=== PATIENT | male | born 1940 | race Caucasian/White ===

== ENCOUNTER 2017-06-02 19:19 | Emergency (ER) | payer OTHER ==
[~2017-06-02] VITALS: Ht 180.3 cm; Wt 82.6 kg
[2017-06-02 19:32] VITALS: BP_SYST 159
--- NOTE | 2017-06-02 19:35 | NUR ---
Pt ambulatory to waiting room, waiting to be seen
[2017-06-02 20:31] LABS: BASOPHILS % (AUTO) 0.4 % (0.0-2.0); EOSINOPHILS # (AUTO) 0.2 K/uL (0.0-0.4); EOSINOPHILS % (AUTO) 1.7 % (0.0-4.0); HEMATOCRIT 51.1 % (36-54); HEMOGLOBIN 16.7 g/dL (14.0-18.0); LYMPHOCYTES # (AUTO) 1.7 K/uL (1.0-5.5); LYMPHOCYTES % (AUTO) 16.8 % (20.5-51.5); MEAN CORPUSCULAR HEMOGLOBIN 31 pg (27-31); MEAN CORPUSCULAR HGB CONC 33 % (32-36); MEAN CORPUSCULAR VOLUME 96 fL (79.0-98.0); MONOCYTES % (AUTO) 9.4 % (1.7-9.3); NEUTROPHILS # (AUTO) 7.2 K/uL (1.8-7.7); NEUTROPHILS % (AUTO) 71.7 % (40.0-70.0); PLATELET COUNT (AUTO) 307 K/uL (130-430); RED BLOOD CELL COUNT(AUTO) 5.34 MIL/uL (4.2-6.2); RED CELL DISTRIBUTION WIDTH 12.6 % (9.0-15.0); WHITE BLOOD COUNT (AUTO) 10.1 K/uL (4.8-10.8)
[2017-06-02 20:33] LABS: ANION GAP 5 (5-15); CALCIUM 9.1 mg/dL (8.4-11.0); CHLORIDE 103 mmol/L (98-107); CREATININE 1.21 mg/dL (0.55-1.30); GLUCOSE 107 mg/dL (70-99); POTASSIUM 4.1 mmol/L (3.5-5.1); SODIUM SERUM 140 mmol/L (136-145); UREA NITROGEN, BLOOD 16 mg/dL (8-21)
[2017-06-02 20:37] LABS: INR 1.1 (0.80-1.20); PROTHROMBIN TIME 11.6 SECS (9.5-12.5)
[2017-06-02 20:44] LABS: ALANINE AMINOTRANSFERASE 18 U/L (12-78); ALBUMIN 3.6 g/dL (3.4-4.8); ASPARTATE AMINOTRANSFERASE 20 U/L (10-37); TOTAL BILIRUBIN 0.3 mg/dL (0.0-1.0)
--- NOTE | 2017-06-02 21:58 | NUR ---
Patient to ER bed 6 to gown for evaluation. Side rails up. Report given to DAWOOD Garcia.
[2017-06-02] MEDS ORDERED: ASPIRIN 81 MG TAB.CHEW PO ONE (22:00)
--- NOTE | 2017-06-02 22:01 | NUR ---
ER MD Trevizo at bedside examining patient.
--- NOTE | 2017-06-02 22:10 | NUR ---
Patient AOx4, ambulatory, presents to ER with complaint of chest pain 03/02 since 1400. O2 sat 97% RA. Denies fever/chills. Denies episodes of N/V. No acute distress noted at this time.
[2017-06-02] MEDS ORDERED: NITROGLYCERIN 1 INCH (GM) OINT. TP ONE (22:15)
[2017-06-02] MEDS ORDERED: MORPHINE 2 MG/ML INJ. SYRINGE IVP ONE (22:15)
[2017-06-02] MEDS ORDERED: NACL 0.9% 1,000 ML IV ONE (22:30)
--- NOTE | 2017-06-02 23:15 | NUR ---
# 20 gauge angiocath placed to LFA. Use of asceptic technique. Opsite placed over site. Blood return noted. Blood for lab drawn from site. Flushed with 10 cc of normal saline. No evidence of infiltration noted. Patient tolerated well.
[2017-06-02] MEDS ORDERED: PIPERACILLIN/TAZO 3.375 GM in NS 50 ML IV ONE (23:45)
[2017-06-02] MEDS ORDERED: ASPIRIN 81 MG TAB.CHEW ONE (23:47)
[2017-06-03] MEDS ORDERED: AMOXICILLIN 500 MG CAPSULE PO ONE
--- NOTE | 2017-06-03 | NUR ---
No adverse reactions noted after medication administration. Will continue to monitor.
[2017-06-03 00:20] VITALS: BP_SYST 142
--- NOTE | 2017-06-03 00:20 | NUR ---
Patient given written and verbal discharge instructions and verbalizes understanding. ER MD discussed with patient the results and treatment provided. Patient in stable condition. ID arm band removed. IV catheter removed intact and dressing applied, no active bleeding. Rx of Motrin and Amoxicillin given. Patient educated on pain management and to follow up with PMD. Pain Scale 2/10 tolerable to patient. Opportunity for questions provided and answered.
== END 2017-06-03 00:20 | disposition home or self-care (01) ==
LOC: SED 19:19
DX: J18.8 Other pneumonia, unspecified organism (principal); K21.9 Gastro-esophageal reflux disease without esophagitis; I10 Essential (primary) hypertension
CPT/HCPCS: 36415; 71010; 80053; 84484; 85025; 85379; 85610; 85730; 87040; 93005; 96361; 96374; 99285; J2270; J7030

== ENCOUNTER 2017-10-23 17:33 | Inpatient (IN) | payer OTHER ==
[~2017-10-23] VITALS: Ht 177.8 cm; Wt 81.6 kg
[2017-10-23 17:33] VITALS: BP_SYST 155
[2017-10-23] MEDS ORDERED: HYDROcodone/ACETAMIN 5-325 MG TAB (NORCO/ VICODIN) PO ONE (19:15)
[2017-10-23 19:22] LABS: BILIRUBIN,URINE NEGATIVE (NEGATIVE); CLARITY/URINE HAZY (CLEAR); COLOR,URINE YELLOW (YELLOW); GLUCOSE,URINE NEGATIVE (NEGATIVE); KETONES,URINE NEGATIVE (NEGATIVE); LEUKOCYTE ESTERASE ,URINE 1+ (NEGATIVE); NITRITE, URINE NEGATIVE (NEGATIVE); PH,URINE 7.5 (5.0-8.0); PROTEIN URINE NEGATIVE (NEGATIVE); UROBILINOGEN,URINE 0.2 (0.2-1.0)
[2017-10-23 19:24] LABS: BLOOD, URINE TRACE (NEGATIVE)
[2017-10-23 19:34] LABS: BASOPHILS % (AUTO) 0.2 % (0.0-2.0); HEMATOCRIT 49.5 % (36-54); HEMOGLOBIN 16.5 g/dL (14.0-18.0); LYMPHOCYTES # (AUTO) 0.6 K/uL (1.0-5.5); LYMPHOCYTES % (AUTO) 6.1 % (20.5-51.5); MEAN CORPUSCULAR HEMOGLOBIN 32 pg (27-31); MEAN CORPUSCULAR HGB CONC 33 % (32-36); MEAN CORPUSCULAR VOLUME 94 fL (79.0-98.0); MONOCYTES # (AUTO) 0.1 K/uL (0.0-1.0); MONOCYTES % (AUTO) 1.2 % (1.7-9.3); NEUTROPHILS # (AUTO) 9.7 K/uL (1.8-7.7); NEUTROPHILS % (AUTO) 92.5 % (40.0-70.0); PLATELET COUNT (AUTO) 331 K/uL (130-430); RED BLOOD CELL COUNT(AUTO) 5.25 MIL/uL (4.2-6.2); RED CELL DISTRIBUTION WIDTH 12.6 % (9.0-15.0); WHITE BLOOD COUNT (AUTO) 10.4 K/uL (4.8-10.8)
[2017-10-23 19:37] LABS: RBC,URINE 0-3 /HPF (0-3)
[2017-10-23 19:38] LABS: INR 1.1 (0.80-1.20); PROTHROMBIN TIME 11.3 SECS (9.5-12.5)
[2017-10-23 19:38] LABS: BACTERIA,URINE MODERATE /HPF (None Seen); MUCUS,URINE 2+ /LPF (None Seen)
[2017-10-23 19:39] LABS: HYALINE CASTS, URINE 0-10 /LPF (None Seen)
[2017-10-23 19:41] LABS: ANION GAP 6 (5-15); CALCIUM 9.8 mg/dL (8.4-11.0); CHLORIDE 104 mmol/L (98-107); CREATININE 1.07 mg/dL (0.55-1.30); GLUCOSE 170 mg/dL (70-99); POTASSIUM 4.4 mmol/L (3.5-5.1); SODIUM SERUM 139 mmol/L (136-145); UREA NITROGEN, BLOOD 17 mg/dL (8-21)
[2017-10-23 19:41] LABS: BARBITURATE, URINE NEGATIVE (NEG <=200); BENZODIAZEPINE, URINE NEGATIVE (NEG <=150); CANNABINOID, URINE NEGATIVE (NEG <=50); COCAINE, URINE NEGATIVE (NEG <=150); METHAMPHETAMINES SCREEN,URINE NEGATIVE (NEG <=500); OPIATE, URINE NEGATIVE (NEG <=100); PHENCYCLIDINE SCREEN,URINE NEGATIVE (NEG <=25); UR TRICYCLIC ANTIDEPRESSANTS NEGATIVE (NEG <=300); URINE AMPHETAMINE NEGATIVE (NEG <=500); URINE METHADONE NEGATIVE (NEG <=200); URINE OXYCODONE SCREEN NEGATIVE (NEG <=100); URINE PROPOXYPHENE SCREEN NEGATIVE (NEG <=300)
[2017-10-23] MEDS ORDERED: CIPROFLOXACIN HCL 500 MG TABLET PO ONE (19:45)
[2017-10-23 19:56] LABS: ALANINE AMINOTRANSFERASE 22 U/L (12-78); ALBUMIN 3.7 g/dL (3.4-4.8); ASPARTATE AMINOTRANSFERASE 17 U/L (10-37); FREE T4 (FREE THYROXINE) 0.8 ng/dL (0.6-1.6); TOTAL BILIRUBIN 0.3 mg/dL (0.0-1.0)
[2017-10-23] MEDS ORDERED: NACL 0.9% 1,000 ML IV ONE (20:00)
[2017-10-23 20:05] LABS: ALCOHOL, BLOOD < 3 mg/dL (<10)
[2017-10-23] MEDS ORDERED: FINA5TAB3 PO (20:27)
[2017-10-23] MEDS ORDERED: PRED5TAB PO (20:27)
[2017-10-23] MEDS ORDERED: PLE5 PO (20:27)
[2017-10-23] MEDS ORDERED: OXYB5TAB11 PO (20:27)
[2017-10-23] MEDS ORDERED: HYDR-4100 PO (20:27)
[2017-10-23] MEDS ORDERED: TAMS-11 PO (20:27)
[2017-10-23] MEDS ORDERED: AZU500 PO (20:27)
[2017-10-23] MEDS ORDERED: DOCU250C75 PO (20:27)
[2017-10-23] MEDS ORDERED: PRO40 PO (20:27)
[2017-10-23 20:35] LABS: ERYTHROCYTE SEDIMENTATION RATE 3 MM/HR (0-15)
[2017-10-23] MEDS ORDERED: DIPHENHYDRAMINE INJ 50 MG/ML VIAL IVP ONE (21:45)
[2017-10-23 22:11] VITALS: BP_SYST 144
[2017-10-23 22:22] LABS: CSF APPEARANCE CLEAR (CLEAR); CSF COLOR COLORLESS (COLORLESS); CSF VOLUME 4.5 mL
[2017-10-23 22:42] LABS: CSF GLUCOSE 79 mg/dL (40-70); CSF PROTEIN 39 mg/dL (15-45)
[2017-10-23 22:48] LABS: CSF RED BLOOD CELL COUNT #1 4 /uL (0-0)
[2017-10-23 22:49] LABS: CSF RED BLOOD CELL COUNT #4 0 /uL (0-0); CSF WHITE BLOOD CELL COUNT #1 2 /uL (0-5); CSF WHITE BLOOD CELL COUNT #4 3 /uL (0-5)
[2017-10-24] MEDS ORDERED: ACETAMINOPHEN 650 MG/20.3 ML UDC PO PRN (01:00)
[2017-10-24] MEDS ORDERED: ONDANSETRON HCL 4 MG/2 ML VIAL IVP PRN (01:15)
[2017-10-24] MEDS ORDERED: LEVOFLOXACIN 500 MG/D5W 100 ML IV ONE ×2 (01:30→03:52)
[2017-10-24] MEDS: D5NS 1,000 ML IV SCH ×2 (04:32→14:20)
[2017-10-24 06:59] LABS: BASOPHILS % (AUTO) 0.2 % (0.0-2.0); EOSINOPHILS % (AUTO) 0.3 % (0.0-4.0); HEMATOCRIT 45.5 % (36-54); LYMPHOCYTES # (AUTO) 1.4 K/uL (1.0-5.5); LYMPHOCYTES % (AUTO) 12.7 % (20.5-51.5); MEAN CORPUSCULAR HEMOGLOBIN 31 pg (27-31); MEAN CORPUSCULAR HGB CONC 33 % (32-36); MEAN CORPUSCULAR VOLUME 95 fL (79.0-98.0); MONOCYTES # (AUTO) 0.9 K/uL (0.0-1.0); MONOCYTES % (AUTO) 8.5 % (1.7-9.3); NEUTROPHILS # (AUTO) 8.4 K/uL (1.8-7.7); NEUTROPHILS % (AUTO) 78.3 % (40.0-70.0); PLATELET COUNT (AUTO) 308 K/uL (130-430); RED CELL DISTRIBUTION WIDTH 12.5 % (9.0-15.0); WHITE BLOOD COUNT (AUTO) 10.7 K/uL (4.8-10.8)
[2017-10-24 07:07] LABS: ANION GAP 7 (5-15); CHLORIDE 102 mmol/L (98-107); CREATININE 0.84 mg/dL (0.55-1.30); GLUCOSE 106 mg/dL (70-99); POTASSIUM 3.7 mmol/L (3.5-5.1); SODIUM SERUM 138 mmol/L (136-145); UREA NITROGEN, BLOOD 18 mg/dL (8-21)
[2017-10-24 07:34] LABS: ALANINE AMINOTRANSFERASE 18 U/L (12-78); ALBUMIN 2.9 g/dL (3.4-4.8); ASPARTATE AMINOTRANSFERASE 14 U/L (10-37); TOTAL BILIRUBIN 0.3 mg/dL (0.0-1.0)
[2017-10-24] MEDS: amLODIPine BESYLATE 5 MG TABLET PO SCH ×2 (08:13→21:18)
[2017-10-24] MEDS: PREDNISONE 5 MG TABLET PO SCH (08:14)
[2017-10-24] MEDS: FINASTERIDE 5 MG TABLET (PROSCAR) PO SCH (08:14)
[2017-10-24] MEDS: TAMSULOSIN HCL 0.4 MG CAP PO SCH (08:14)
[2017-10-24] MEDS: ASPIRIN 325 MG TABLET PO SCH (08:14)
[2017-10-24] MEDS: sulfASALAZINE 500 MG TABLET (AZULFIDINE) PO SCH ×2 (08:14→21:17)
[2017-10-24] MEDS: DOCUSATE SODIUM 250 MG CAPSULE PO SCH ×2 (08:14→21:16)
[2017-10-24] MEDS: OXYBUTYNIN CHLORIDE 5 MG TABLET PO SCH (08:14)
[2017-10-24] MEDS: PANTOPRAZOLE SODIUM 40 MG TAB PO SCH (08:14)
[2017-10-24] MEDS: HYDROcodone/ACETAMIN 5-325 MG TAB (NORCO/ VICODIN) PO PRN ×2 (08:15→16:04)
[2017-10-24 08:24] VITALS: BP_SYST 159
[2017-10-24] MEDS ORDERED: LORazepam 1 MG TABLET PO ONE (09:15)
[2017-10-24] MEDS: VALPROATE SODIUM 500 MG in D5W 100 ML IV SCH ×3 (09:17→21:16)
[2017-10-24 09:45] LABS: ERYTHROCYTE SEDIMENTATION RATE 5 MM/HR (0-15)
[2017-10-24] MEDS ORDERED: LR 1,000 ML IV SCH (14:19)
[2017-10-24] MEDS ORDERED: METOCLOPRAMIDE HCL 10 MG/2 ML VIAL IVP PRN (14:30)
[2017-10-24] MEDS ORDERED: MORPHINE SULFATE 10 MG/ML VIAL IVP PRN ×3 (14:30)
[2017-10-24 14:34] VITALS: BP_SYST 159
[2017-10-24] MEDS ORDERED: MIDAZOLAM HCL 5 MG/ML VIAL (VERSED) IV ONE (14:35)
[2017-10-24] MEDS ORDERED: LR 1,000 ML IV.SOLN IV ONE (14:35)
[2017-10-24] MEDS ORDERED: LIDOCAINE/EPI 1% 1:100000 20 ML VIAL INJ ONE (14:35)
[2017-10-24] MEDS ORDERED: ONDANSETRON HCL 4 MG/2 ML VIAL IVP ONE (14:35)
[2017-10-24] MEDS ORDERED: PROPOFOL 200MG/ 20ML VIAL (DIPRIVAN) IV ONE (14:35)
[2017-10-24] MEDS ORDERED: NS IRRIG SOLN 1000 ML IR ONE (14:35)
[2017-10-24] MEDS ORDERED: fentaNYL CITRATE 250 MCG/5 ML AMP IV ONE (14:35)
[2017-10-24 15:15] VITALS: BP_SYST 124
[2017-10-24] MEDS: MORPHINE 2 MG/ML INJ. SYRINGE IVP PRN ×2 (17:27→21:19)
[2017-10-24 18:00] VITALS: BP_SYST 129
[2017-10-24 20:51] VITALS: BP_SYST 136
[2017-10-24] MEDS ORDERED: LEVOFLOXACIN 500 MG/D5W 100 ML IV SCH (21:00)
[2017-10-24 22:53] VITALS: BP_SYST 139
[2017-10-25] MEDS: D5NS 1,000 ML IV SCH (02:10)
[2017-10-25] MEDS: MORPHINE 2 MG/ML INJ. SYRINGE IVP PRN ×4 (02:11→12:53)
[2017-10-25] MEDS: VALPROATE SODIUM 500 MG in D5W 100 ML IV SCH ×2 (06:08→13:41)
[2017-10-25 08:35] VITALS: BP_SYST 138
[2017-10-25] MEDS: DOCUSATE SODIUM 250 MG CAPSULE PO SCH (08:39)
[2017-10-25] MEDS: sulfASALAZINE 500 MG TABLET (AZULFIDINE) PO SCH (08:39)
[2017-10-25] MEDS: PANTOPRAZOLE SODIUM 40 MG TAB PO SCH (08:39)
[2017-10-25] MEDS: ASPIRIN 325 MG TABLET PO SCH (08:39)
[2017-10-25] MEDS: TAMSULOSIN HCL 0.4 MG CAP PO SCH (08:40)
[2017-10-25] MEDS: FINASTERIDE 5 MG TABLET (PROSCAR) PO SCH (08:40)
[2017-10-25] MEDS: OXYBUTYNIN CHLORIDE 5 MG TABLET PO SCH (08:40)
[2017-10-25] MEDS: PREDNISONE 5 MG TABLET PO SCH (08:40)
[2017-10-25] MEDS: amLODIPine BESYLATE 5 MG TABLET PO SCH (08:41)
[2017-10-25] MEDS ORDERED: PRED20TA PO (11:46)
[2017-10-25 12:52] VITALS: BP_SYST 125; BP_SYST 137
[2017-10-25 14:05] VITALS: BP_SYST 143
[2017-10-25 16:57] VITALS: BP_SYST 143
== END 2017-10-25 15:55 | disposition home or self-care (01) | DRG 516 ==
LOC: SED 17:33 → STU 21:40
PROVIDERS: ADMIT Internal Medicine Hospice and Palliative Medicine; ATTEND Internal Medicine Hospice and Palliative Medicine
PROC: 03BT0ZX Excision of Left Temporal Artery, Open Approach, Diagnostic (ICD-10-PCS; principal; 2017-10-24 12:15)
DX: M31.6 Other giant cell arteritis (principal); N39.0 Urinary tract infection, site not specified; G43.909 Migraine, unspecified, not intractable, without status migrainosus; G45.3 Amaurosis fugax; N40.0 Benign prostatic hyperplasia without lower urinary tract symptoms; H54.40 Blindness, one eye, unspecified eye; M19.90 Unspecified osteoarthritis, unspecified site; I10 Essential (primary) hypertension; K21.9 Gastro-esophageal reflux disease without esophagitis; Z91.041 Radiographic dye allergy status; Z79.899 Other long term (current) drug therapy; Z86.73 Personal history of transient ischemic attack (TIA), and cerebral infarction without residual deficits; Z87.891 Personal history of nicotine dependence
CPT/HCPCS: 36415; 70450-TC; 70544; 70547; 71045; 74018; 80053; 80307; 81000-TC; 82140-TC; 82947-TC; 83605; 83880; 84157-TC; 84439; 84484; 85025; 85048; 85610-TC; 85651-TC; 87040-TC; 87070-TC; 87081; 87086; 87186-TC; 87205-TC; 88305; 89051-TC; 93005; 94010; 96361; 96374; 99285; G0482; J1200; J1956; J2250; J2270; J2405; J2704; J3010; J7030; J7042; J7060; J7120; J7512

== ENCOUNTER 2017-12-03 12:52 | Emergency (ER) | payer OTHER ==
[~2017-12-03] VITALS: Ht 177.8 cm; Wt 81.6 kg
[~2017-12-03 12:52] MED LIST: AZU500 PO; DOCU250C75 PO; FINA5TAB3 PO; HYDR-4100 PO; OXYB5TAB11 PO; PLE5 PO; PRED20TA PO; PRO40 PO; TAMS-11 PO
[2017-12-03 13:02] VITALS: BP_SYST 148
[2017-12-03] MEDS ORDERED: LIDOCAINE 1% 10 MG/ML, 20 ML MDV INJ ONE (13:30)
[2017-12-03 14:03] VITALS: BP_SYST 138
== END 2017-12-03 14:05 | disposition home or self-care (01) ==
LOC: SED 12:52
DX: L02.11 Cutaneous abscess of neck (principal); K21.9 Gastro-esophageal reflux disease without esophagitis; I10 Essential (primary) hypertension; Z91.041 Radiographic dye allergy status; Z79.899 Other long term (current) drug therapy
CPT/HCPCS: 10061; 99284; J2001

== ENCOUNTER 2019-07-25 14:10 | Emergency (ER) | payer OTHER ==
[~2019-07-25] VITALS: Ht 177.8 cm; Wt 79.4 kg
[2019-07-25 14:27] VITALS: BP_SYST 184
[2019-07-25] MEDS ORDERED: ISOS60TA4 PO (14:54)
[2019-07-25] MEDS ORDERED: TICA90TA PO (14:54)
[2019-07-25] MEDS ORDERED: TRAZ-250 PO (14:54)
[2019-07-25] MEDS ORDERED: AMLO5TAB4 PO (14:54)
[2019-07-25] MEDS ORDERED: LIP40 PO (14:54)
[2019-07-25] MEDS ORDERED: DOCU250C75 PO (14:54)
[2019-07-25] MEDS ORDERED: ASPI-1153 PO (14:54)
[2019-07-25 16:03] VITALS: BP_SYST 149
== END 2019-07-25 16:03 | disposition home or self-care (01) ==
LOC: SED 14:10
DX: S20.219A Contusion of unspecified front wall of thorax, initial encounter (principal); S40.021A Contusion of right upper arm, initial encounter; S40.022A Contusion of left upper arm, initial encounter; T50.995A Adverse effect of other drugs, medicaments and biological substances, initial encounter; I10 Essential (primary) hypertension; Z79.82 Long term (current) use of aspirin; Z79.899 Other long term (current) drug therapy; Z91.041 Radiographic dye allergy status; Y92.89 Other specified places as the place of occurrence of the external cause
CPT/HCPCS: 99282

== ENCOUNTER 2021-04-01 12:59 | Inpatient (IN) | payer OTHER, SELFPAY ==
[~2021-04-01] VITALS: Ht 180.3 cm; Wt 70.8 kg
[~2021-04-01 12:59] MED LIST changes: +AMLO5TAB4 PO; +ASPI-1393 PO; -AZU500 PO; +HYDR-3927 PO; -HYDR-4100 PO; +ISOS60TA71 PO; +LIP40 PO; -OXYB5TAB11 PO; +OXYB5TAB16 PO; -PLE5 PO; -PRED20TA PO; +TICA90TA PO; +TRAZ-250 PO
[2021-04-01 13:01] VITALS: BP_SYST 168
[2021-04-01 13:34] LABS: BASOPHILS % (AUTO) 0.4 % (0.0-2.0); EOSINOPHILS % (AUTO) 0.4 % (0.0-4.0); HEMATOCRIT 50.8 % (36-54); HEMOGLOBIN 16.5 g/dL (14.0-18.0); LYMPHOCYTES # (AUTO) 0.8 K/uL (1.0-5.5); MEAN CORPUSCULAR HEMOGLOBIN 31 pg (27-31); MEAN CORPUSCULAR HGB CONC 32 % (32-36); MEAN CORPUSCULAR VOLUME 95 fL (79.0-98.0); MONOCYTES # (AUTO) 0.9 K/uL (0.0-1.0); MONOCYTES % (AUTO) 7.8 % (1.7-9.3); NEUTROPHILS # (AUTO) 10.3 K/uL (1.8-7.7); NEUTROPHILS % (AUTO) 84.4 % (40.0-70.0); PLATELET COUNT (AUTO) 271 K/uL (130-430); RED BLOOD CELL COUNT(AUTO) 5.35 MIL/uL (4.2-6.2); RED CELL DISTRIBUTION WIDTH 13.9 % (9.0-15.0); WHITE BLOOD COUNT (AUTO) 12.2 K/uL (4.8-10.8)
[2021-04-01 13:39] LABS: ANION GAP 12 (5-15); CALCIUM 9.2 mg/dL (8.4-11.0); CHLORIDE 103 mmol/L (98-107); CREATININE 1.25 mg/dL (0.55-1.30); GLUCOSE 160 mg/dL (70-99); SODIUM SERUM 138 mmol/L (136-145); UREA NITROGEN, BLOOD 20 mg/dL (8-21)
[2021-04-01 13:42] LABS: INR 1.2 (0.80-1.20); PROTHROMBIN TIME 11.8 SECS (9.5-12.5)
[2021-04-01] MEDS ORDERED: DONE10TA44 PO (13:50)
[2021-04-01 13:53] LABS: BILIRUBIN,URINE NEGATIVE (NEGATIVE); BLOOD, URINE 1+ (NEGATIVE); CLARITY/URINE CLEAR (CLEAR); COLOR,URINE YELLOW (YELLOW); GLUCOSE,URINE NEGATIVE (NEGATIVE); KETONES,URINE NEGATIVE (NEGATIVE); LEUKOCYTE ESTERASE ,URINE NEGATIVE (NEGATIVE); NITRITE, URINE NEGATIVE (NEGATIVE); PROTEIN URINE NEGATIVE (NEGATIVE); UROBILINOGEN,URINE 0.2 (0.2-1.0)
[2021-04-01 13:56] LABS: ACETONE, SERUM NEGATIVE (NEGATIVE); ALANINE AMINOTRANSFERASE 22 U/L (12-78); ALBUMIN 3.2 g/dL (3.4-4.8); ASPARTATE AMINOTRANSFERASE 23 U/L (10-37); TOTAL BILIRUBIN 0.8 mg/dL (0.0-1.0)
[2021-04-01 14:11] LABS: BACTERIA,URINE FEW /HPF (None Seen); RBC,URINE 0-3 /HPF (0-3); WBC,URINE NONE SEEN /HPF (0-3)
[2021-04-01 14:12] LABS: MUCUS,URINE None Seen /LPF (None Seen)
[2021-04-01] MEDS ORDERED: AZITHROMYCIN 500 MG in NS 250 ML IV ONE (14:30)
[2021-04-01] MEDS ORDERED: cefTRIAXone 1 GM IVPB PREMIX 50 ML IV ONE (14:30)
[2021-04-01] MEDS ORDERED: AZITHROMYCIN 500 MG/VIAL (ZITHROMAX) IV ONE (14:44)
[2021-04-01] MEDS ORDERED: NACL 0.9% 1,000 ML IV ONE ×2 (15:00)
[2021-04-01 16:18] VITALS: BP_SYST 182
[2021-04-01] MEDS ORDERED: IPRATROPIUM BROM 0.5 MG/2.5 ML VIAL.NEB (ATROVENT) INH PRN (17:00)
[2021-04-01] MEDS ORDERED: HYDROcodone/ACETAMIN 5-325 MG TAB (NORCO/ VICODIN) PO PRN (17:00)
[2021-04-01] MEDS ORDERED: NALOXONE HCL 0.4 MG/ML AMP (NARCAN) IVP PRN ×2 (17:00)
[2021-04-01] MEDS ORDERED: ACETAMINOPHEN 325 MG TABLET PO PRN (17:00)
[2021-04-01] MEDS ORDERED: ALBUTEROL SULFATE 0.083% 2.5 MG/3 ML VIAL.NEB INH PRN (17:00)
[2021-04-01] MEDS ORDERED: ONDANSETRON HCL 4 MG/2 ML VIAL IVP PRN (17:00)
[2021-04-01] MEDS ORDERED: HYDROcodone/ACETAMIN 10-325 MG TAB PO PRN (17:00)
[2021-04-01] MEDS: AZITHROMYCIN 500 MG in NS 250 ML IV SCH (17:04)
[2021-04-01 17:18] VITALS: BP_SYST 182
[2021-04-01] MEDS: cloNIDine HCL 0.1 MG TABLET PO PRN (18:28)
[2021-04-01] MEDS: cefTRIAXone 1 GM IVPB PREMIX 50 ML IV SCH (18:28)
[2021-04-01 19:30] VITALS: BP_SYST 168
[2021-04-01] MEDS ORDERED: TICAGRELOR 90 MG PO SCH (21:00)
[2021-04-01] MEDS: ATORVASTATIN 20 MG TABLET PO SCH (21:10)
[2021-04-01] MEDS: ISOSORBIDE MONONITRATE 30 MG TAB.ER.24H PO SCH (21:11)
[2021-04-01] MEDS: DONEPEZIL HCL 5 MG TABLET (ARICEPT) PO SCH (21:11)
[2021-04-01] MEDS: DOCUSATE SODIUM 250 MG CAPSULE PO SCH (21:11)
[2021-04-01] MEDS: NORMAL SALINE 5 ML DISP.SYRIN IVF SCH ×2 (21:15→21:16)
[2021-04-01 22:02] VITALS: BP_SYST 134
[2021-04-02 00:03] VITALS: BP_SYST 114
[2021-04-02] MEDS: LORazepam 2 MG/ML VIAL IVP PRN ×2 (00:15→23:27)
[2021-04-02] MEDS: NORMAL SALINE 5 ML DISP.SYRIN IVF SCH ×4 (05:55→21:06)
[2021-04-02 06:41] LABS: BASOPHILS % (AUTO) 0.4 % (0.0-2.0); EOSINOPHILS # (AUTO) 0.2 K/uL (0.0-0.4); EOSINOPHILS % (AUTO) 1.5 % (0.0-4.0); HEMATOCRIT 46.2 % (36-54); HEMOGLOBIN 15.2 g/dL (14.0-18.0); LYMPHOCYTES # (AUTO) 1.6 K/uL (1.0-5.5); LYMPHOCYTES % (AUTO) 14.6 % (20.5-51.5); MEAN CORPUSCULAR HEMOGLOBIN 32 pg (27-31); MEAN CORPUSCULAR HGB CONC 33 % (32-36); MEAN CORPUSCULAR VOLUME 96 fL (79.0-98.0); MONOCYTES # (AUTO) 1.2 K/uL (0.0-1.0); MONOCYTES % (AUTO) 11.3 % (1.7-9.3); NEUTROPHILS # (AUTO) 7.9 K/uL (1.8-7.7); NEUTROPHILS % (AUTO) 72.2 % (40.0-70.0); PLATELET COUNT (AUTO) 241 K/uL (130-430); RED BLOOD CELL COUNT(AUTO) 4.81 MIL/uL (4.2-6.2); RED CELL DISTRIBUTION WIDTH 13.9 % (9.0-15.0)
[2021-04-02 06:52] LABS: ANION GAP 9 (5-15); CALCIUM 8.5 mg/dL (8.4-11.0); CHLORIDE 106 mmol/L (98-107); CREATININE 1.07 mg/dL (0.55-1.30); GLUCOSE 91 mg/dL (70-99); PHOSPHORUS 2.8 mg/dL (2.7-4.5); POTASSIUM 3.8 mmol/L (3.5-5.1); SODIUM SERUM 141 mmol/L (136-145); UREA NITROGEN, BLOOD 20 mg/dL (8-21)
[2021-04-02 08:00] VITALS: BP_SYST 118
[2021-04-02] MEDS: amLODIPine BESYLATE 5 MG TABLET PO SCH (08:56)
[2021-04-02] MEDS: TAMSULOSIN HCL 0.4 MG CAP PO SCH (08:56)
[2021-04-02] MEDS: DOCUSATE SODIUM 250 MG CAPSULE PO SCH ×2 (08:56→20:30)
[2021-04-02] MEDS: PANTOPRAZOLE SODIUM 40 MG TAB PO SCH (08:56)
[2021-04-02] MEDS: OXYBUTYNIN CHLORIDE 5 MG TABLET PO SCH (08:56)
[2021-04-02] MEDS: FINASTERIDE 5 MG TABLET (PROSCAR) PO SCH (08:56)
[2021-04-02 12:00] VITALS: BP_SYST 123
[2021-04-02 16:00] VITALS: BP_SYST 156
[2021-04-02] MEDS: cefTRIAXone 1 GM IVPB PREMIX 50 ML IV SCH (16:37)
[2021-04-02] MEDS: AZITHROMYCIN 500 MG in NS 250 ML IV SCH (17:22)
[2021-04-02] MEDS: ATORVASTATIN 20 MG TABLET PO SCH (20:30)
[2021-04-02] MEDS: ISOSORBIDE MONONITRATE 30 MG TAB.ER.24H PO SCH (20:30)
[2021-04-02] MEDS: DONEPEZIL HCL 5 MG TABLET (ARICEPT) PO SCH (20:31)
[2021-04-02 21:17] VITALS: BP_SYST 156
[2021-04-03 00:21] VITALS: BP_SYST 131
[2021-04-03] MEDS: NORMAL SALINE 5 ML DISP.SYRIN IVF SCH ×3 (05:50→20:33)
[2021-04-03 07:03] LABS: BASOPHILS % (AUTO) 0.6 % (0.0-2.0); EOSINOPHILS # (AUTO) 0.2 K/uL (0.0-0.4); EOSINOPHILS % (AUTO) 2.4 % (0.0-4.0); HEMATOCRIT 45.3 % (36-54); LYMPHOCYTES # (AUTO) 1.4 K/uL (1.0-5.5); LYMPHOCYTES % (AUTO) 16.1 % (20.5-51.5); MEAN CORPUSCULAR HEMOGLOBIN 32 pg (27-31); MEAN CORPUSCULAR HGB CONC 33 % (32-36); MEAN CORPUSCULAR VOLUME 96 fL (79.0-98.0); MONOCYTES # (AUTO) 0.9 K/uL (0.0-1.0); MONOCYTES % (AUTO) 11.3 % (1.7-9.3); NEUTROPHILS # (AUTO) 5.8 K/uL (1.8-7.7); NEUTROPHILS % (AUTO) 69.6 % (40.0-70.0); PLATELET COUNT (AUTO) 222 K/uL (130-430); RED BLOOD CELL COUNT(AUTO) 4.73 MIL/uL (4.2-6.2); RED CELL DISTRIBUTION WIDTH 13.5 % (9.0-15.0); WHITE BLOOD COUNT (AUTO) 8.4 K/uL (4.8-10.8)
[2021-04-03 07:21] LABS: ALANINE AMINOTRANSFERASE 17 U/L (12-78); ALBUMIN 2.5 g/dL (3.4-4.8); ANION GAP 9 (5-15); ASPARTATE AMINOTRANSFERASE 16 U/L (10-37); CALCIUM 8.3 mg/dL (8.4-11.0); CHLORIDE 106 mmol/L (98-107); GLUCOSE 91 mg/dL (70-99); POTASSIUM 3.7 mmol/L (3.5-5.1); SODIUM SERUM 140 mmol/L (136-145); TOTAL BILIRUBIN 0.8 mg/dL (0.0-1.0); UREA NITROGEN, BLOOD 20 mg/dL (8-21)
[2021-04-03 08:00] VITALS: BP_SYST 134
[2021-04-03] MEDS: FINASTERIDE 5 MG TABLET (PROSCAR) PO SCH (09:00)
[2021-04-03] MEDS: PANTOPRAZOLE SODIUM 40 MG TAB PO SCH (09:00)
[2021-04-03] MEDS: amLODIPine BESYLATE 5 MG TABLET PO SCH (09:00)
[2021-04-03] MEDS: DOCUSATE SODIUM 250 MG CAPSULE PO SCH ×2 (09:00→20:29)
[2021-04-03] MEDS: TAMSULOSIN HCL 0.4 MG CAP PO SCH (09:00)
[2021-04-03] MEDS ORDERED: TICAGRELOR 60 MG PO SCH (09:00)
[2021-04-03] MEDS: OXYBUTYNIN CHLORIDE 5 MG TABLET PO SCH (09:00)
[2021-04-03 09:58] LABS: ERYTHROCYTE SEDIMENTATION RATE 5 MM/HR (0-15)
[2021-04-03] MEDS: cefTRIAXone 1 GM IVPB PREMIX 50 ML IV SCH (16:44)
[2021-04-03] MEDS: AZITHROMYCIN 500 MG in NS 250 ML IV SCH (18:05)
[2021-04-03 20:00] VITALS: BP_SYST 181
[2021-04-03] MEDS: ISOSORBIDE MONONITRATE 30 MG TAB.ER.24H PO SCH (20:29)
[2021-04-03] MEDS: DONEPEZIL HCL 5 MG TABLET (ARICEPT) PO SCH (20:29)
[2021-04-03] MEDS: ATORVASTATIN 20 MG TABLET PO SCH (20:29)
[2021-04-03] MEDS: BRILINTA 60 MG PO SCH (20:32)
[2021-04-03] MEDS: cloNIDine HCL 0.1 MG TABLET PO PRN (23:23)
[2021-04-04 00:20] VITALS: BP_SYST 173
[2021-04-04] MEDS: NORMAL SALINE 5 ML DISP.SYRIN IVF SCH ×3 (06:18→20:33)
[2021-04-04 08:00] VITALS: BP_SYST 128
[2021-04-04] MEDS: FINASTERIDE 5 MG TABLET (PROSCAR) PO SCH (09:01)
[2021-04-04] MEDS: amLODIPine BESYLATE 5 MG TABLET PO SCH (09:01)
[2021-04-04] MEDS: DOCUSATE SODIUM 250 MG CAPSULE PO SCH ×2 (09:01→20:32)
[2021-04-04] MEDS: TAMSULOSIN HCL 0.4 MG CAP PO SCH (09:01)
[2021-04-04] MEDS: OXYBUTYNIN CHLORIDE 5 MG TABLET PO SCH (09:01)
[2021-04-04] MEDS: PANTOPRAZOLE SODIUM 40 MG TAB PO SCH (09:02)
[2021-04-04 09:49] VITALS: BP_SYST 128
[2021-04-04] MEDS: BRILINTA 60 MG PO SCH ×2 (10:44→20:31)
[2021-04-04 12:10] VITALS: BP_SYST 110
[2021-04-04 16:00] VITALS: BP_SYST 103
[2021-04-04] MEDS: cefTRIAXone 1 GM IVPB PREMIX 50 ML IV SCH (16:40)
[2021-04-04] MEDS: AZITHROMYCIN 500 MG in NS 250 ML IV SCH (16:48)
[2021-04-04 20:00] VITALS: BP_SYST 157
[2021-04-04] MEDS: ATORVASTATIN 20 MG TABLET PO SCH (20:32)
[2021-04-04] MEDS: DONEPEZIL HCL 5 MG TABLET (ARICEPT) PO SCH (20:33)
[2021-04-04] MEDS: ISOSORBIDE MONONITRATE 30 MG TAB.ER.24H PO SCH (20:34)
[2021-04-04] MEDS: LORazepam 2 MG/ML VIAL IVP PRN (22:55)
[2021-04-05 00:05] VITALS: BP_SYST 113
[2021-04-05] MEDS: NORMAL SALINE 5 ML DISP.SYRIN IVF SCH ×2 (06:07→14:28)
[2021-04-05 08:00] VITALS: BP_SYST 154
[2021-04-05] MEDS: DOCUSATE SODIUM 250 MG CAPSULE PO SCH (09:19)
[2021-04-05] MEDS: amLODIPine BESYLATE 5 MG TABLET PO SCH (09:20)
[2021-04-05] MEDS: OXYBUTYNIN CHLORIDE 5 MG TABLET PO SCH (09:20)
[2021-04-05] MEDS: TAMSULOSIN HCL 0.4 MG CAP PO SCH (09:20)
[2021-04-05] MEDS: PANTOPRAZOLE SODIUM 40 MG TAB PO SCH (09:20)
[2021-04-05] MEDS: FINASTERIDE 5 MG TABLET (PROSCAR) PO SCH (09:20)
[2021-04-05] MEDS: BRILINTA 60 MG PO SCH (09:21)
[2021-04-05 18:00] VITALS: BP_SYST 155
== END 2021-04-05 18:05 | DRG 194 ==
LOC: SED 12:59 → STU 14:49
PROVIDERS: ADMIT Internal Medicine Hospice and Palliative Medicine; ATTEND Internal Medicine Hospice and Palliative Medicine
DX: J18.9 Pneumonia, unspecified organism (principal); E87.2 Acidosis; J44.0 Chronic obstructive pulmonary disease with (acute) lower respiratory infection; E88.09 Other disorders of plasma-protein metabolism, not elsewhere classified; R62.7 Adult failure to thrive; R73.9 Hyperglycemia, unspecified; R53.81 Other malaise; K21.9 Gastro-esophageal reflux disease without esophagitis; E78.5 Hyperlipidemia, unspecified; I25.10 Atherosclerotic heart disease of native coronary artery without angina pectoris; I10 Essential (primary) hypertension; F03.90 Unspecified dementia, unspecified severity, without behavioral disturbance, psychotic disturbance, mood disturbance, and anxiety; Z20.822 Contact with and (suspected) exposure to COVID-19; F17.210 Nicotine dependence, cigarettes, uncomplicated; Z91.041 Radiographic dye allergy status; Z79.899 Other long term (current) drug therapy; Z74.01 Bed confinement status; Z86.73 Personal history of transient ischemic attack (TIA), and cerebral infarction without residual deficits
CPT/HCPCS: 36415; 36600; 70450-TC; 71045; 71250-TC; 76376; 80048; 80053; 81000; 82009; 82550; 82803-TC; 83605; 83735; 83880; 84100; 84484; 85025; 85610-TC; 85651-TC; 85730-TC; 86140; 87040-TC; 92610-GN; 93005; 96365; 96368; 97116-GP; 97163-GP; 97530-GP; 99285; G0378; J0456; J0696; J2060; J7050